=== PATIENT | female | born 1970 | race Caucasian/White ===

== ENCOUNTER 2019-11-07 14:08 | Emergency (ER) | payer BC, SELFPAY ==
[2019-11-07 14:12] VITALS: BP 137/89; PULSE 72; RESP 16; TEMP 37.1; O2SAT 95; BMI 36.2
--- NOTE | 2019-11-07 14:33 | CT_ITS ---
STUDY: CT ABDOMEN AND PELVIS WITHOUT CONTRAST REASON FOR EXAM: Female, 49 years old. LEFT FLANK PAIN FOLLOWING STENT PLACEMENT 4 DAYS AGO FOR KIDNEY STONE. PRIOR TOTAL HYSTERECTOMY AND CHOLECYSTECTOMY RADIATION DOSAGE (If Supplied By Facility): CTDIvol = ( 13.16 ) mGy, DLP = ( 699.41 ) mGycm TECHNIQUE: Transaxial images were obtained from the dome of the diaphragm to the symphysis pubis without oral contrast, and without intravenous contrast. Sagittal and coronal images were reconstructed. Individualized dose optimization techniques were used for this CT. COMPARISON: None. FINDINGS: Lung bases are clear. Heart size is normal. The liver is unremarkable. The gallbladder is nonvisualized. The spleen and pancreas are unremarkable. The adrenal glands are normal. Right renal low-attenuation lesion measures 1.8 cm, not characterized without contrast. Left ureteral stent extends from the left renal pelvis to the bladder. The kidneys are otherwise unremarkable. No stones or hydronephrosis. The aorta is normal in caliber. There is no free fluid, free air, or organized collection. No bowel obstruction or inflammatory change. Diverticulosis. Normal appendix. Urinary bladder is unremarkable. Small, fat-containing umbilical hernia. Normal osseous structures. CT/Abdomen/Pelvis without Cont IMPRESSION: 1. No acute findings. 2. Small, fat-containing umbilical hernia. 3. Left ureteral stent in situ. No obstructive uropathy. 4. Chronic findings are noted above. Electronically Signed: Catherine Chapa MD at 15:53 EDT Tel , Service support ,
--- NOTE | 2019-11-07 14:35 | ED.VISSUMM ---
- ER Visit Summary Date of Service: 11/07/19 Chief Complaint: [Abdominal pain] History of Present Illness: The patient is a 49 F [presents to the emergency department complaint of abdominal/pelvic pressure that started 2 days ago. Patient states that she is from [place] and 4 days ago had lithotripsy for kidney stone in her left ureter and had a stent placed. Patient felt pretty well for the approximately 2 days afterwards. She is currently on Cipro. She had been on Levaquin prior to that. She denies any fevers. She has been having worsening pain for the last 2 days and frequency of urination as well as dysuria. Patient has history of hypertension. She has had prior cholecystectomy, and hysterectomy.] Took Toradol for pain today and she does not get much pain relief. She rates her pain currently an 8 out of 10. Physical Examination: [HEENT-PERRLA, EOMI. Cranial nerves II through XII grossly intact. TMs clear. Mucous membranes moist. No adenopathy. Cardiovascular-regular rate and rhythm without murmur or ectopy Lungs-clear to auscultation, chest wall stable without crepitus or subcu emphysema Abdomen-normoactive bowel sounds, soft. Patient has tenderness over the suprapubic region. No rebound, rigidity, or cranial signs. No CVA tenderness on exam. Extremities-intact ?4, normal range of motion, normal pulses, atraumatic Test Results: [CBC with it was normal. Chemistries unremarkable B. BUN was 27 and creatinine 1.08. Urinalysis showed positive nitrites but no leukocyte Estrace. Patient had greater than 100 RBCs and no white cells noted. Patient had +[address] flank obtained showed left ureteral stent otherwise nothing acute.] Emergency Department Course and Treatment: [Patient was medicated with morphine and Zofran IV. She had good pain relief with that. Patient was discussed with urology on-call who recommended adding Flomax to her regimen. It was believed that her pain likely due to pain from the stent. Patient will be given a prescription for [place] and Flomax. She is advised to follow-up with her urologist and her plan is to go home tomorrow to [place] and call in 2 days to follow-up with her urologist.] Treatment Plan: [Low up with urology in 2 days. Patient given a prescription for Flomax and Percocet.] Disposition: [Discharged home in stable condition] Impression: [Abdominal pain] This note was generated with [employer] dictation software. It may contain incorrect words, spelling, and punctuation that were not noted in review of the chart prior to signing ED Disposition - Plan for ED Patient: Referrals: NOT,DEFINED [NON-STAFF] -
[2019-11-07 14:59] LABS: Mucous, Urine 0 SEEN /hpf (<or=2+); Squamous Epithelial Cells - UA 0 SEEN /hpf (5-10); White Blood Cells 0 SEEN /hpf (0-5)
[2019-11-07 15:00] LABS: Color, Urine Brown (Yellow); Glucose, Dipstick Normal (Normal); Ketone-Dipstick 5 mg/dl (Negative); Leukocyte Esterase-Dipstick Negative /ul (Negative); Nitrite-Dipstick Positive (Negative); Occult Blood-Urine 250 /ul (Negative); Protein-Dipstick 500 mg/dl (Negative); Specific Gravity, Urine 1.025 (1.002-1.030); Urine Clarity Turbid (Clear); Urine Urobilinogen 8 mg/dl (Normal); Urine pH 6.5 (5.0 - 8.0)
[2019-11-07] MEDS: Ondansetron 4 MG/2 ML Vial IV (15:01)
[2019-11-07 15:02] LABS: Urine Bilirubin Dipstick 6 mg/dL (Negative)
[2019-11-07] MEDS: Morphine 4 MG/ML Syringe IV (15:02)
[2019-11-07 15:03] LABS: Absolute Lymphocyte Count 2.67 X10^3/uL (0.83-4.51); Absolute Neutrophil Count 3.8 X10^3/uL (2.0-7.7); Basophil# 0.03 X10^3/uL; Basophil% 0.4 % (0-1); Eosinophil# 0.23 X10^3/uL; Eosinophils% 3.2 % (0-5); Hematocrit 40.2 % (37-47); Lymphocyte # 2.67 X10^3/ul (4.0); Lymphocyte % 36.7 % (19-41); Mean Corp Hgb Conc 32.3 g/dL (32-36); Mean Corpuscular Hgb 27.4 pg (27.0-32.0); Mean Corpuscular Volume 84.8 fL (81-99); Mean Platelet Vol. 10.1 fl (6.2-12.0); Monocyte# 0.49 X10^3/uL; Monocyte% 6.7 % (0-10); NRBC Flagged by Analyzer 0 % (0-5); Neutrophil # 3.84 X10^3/uL (2.7-7.7); Neutrophil % 52.7 % (47-70); Platelet Count 231 K/mm3 (150-450); RBC Distribution Width CV 13.2 % (11.6-14.6); RBC Distribution Width SD 40.5 fl (35.1-43.9); Red Blood Count 4.74 M/mm3 (4.2-5.4); White Blood Count 7.3 K/mm3 (4.4-11.0)
[2019-11-07] MEDS: 0.9% Normal Saline 1,000 ML 125 ML IV (15:03)
[2019-11-07 15:07] LABS: Red Blood Cells-Urine > 100 SEEN /hpf (0-5)
[2019-11-07 15:08] LABS: Bacteria 1+ /hpf (None Seen)
[2019-11-07 15:26] LABS: Anion Gap 9 (5-15); BUN 27 mg/dL (7-18); Calcium,Total 8.6 mg/dL (8.5-10.1); Chloride 110 mmol/L (98-107); Creatinine, Serum 1.08 mg/dL (0.55-1.02); EST Glomerular Filtration Rate 57 mL/min (>60); Est Glom Filt Rate - Afr Amer 69 mL/min (>60); Estimated Creatinine Clearance 53.81 ml/min; Glucose 110 mg/dL (74-106); Potassium 3.7 mmol/L (3.5-5.1); Sodium Level 145 mmol/L (136-145)
--- NOTE | 2019-11-07 16:11 | ED.DEP ---
ED Disposition - Plan for ED Patient: Instructions: ED Abdominal Pain Unkn Cause Fem Prescriptions: Tamsulosin HCl [Flomax] 0.4 mg PO DAILY #7 cap Prescription Printed Oxycodone HCl/Acetaminophen [Percocet 5/325] 1 tab PO Q6H PRN PRN 3 Days #12 tab PRN Reason: Pain Prescription Printed Ketorolac [Toradol] 10 mg PO Q6H PRN #10 tab PRN Reason: Pain Score 4-10/10 Prescription Printed Referrals: NOT,DEFINED [NON-STAFF] - Additional Instructions: see your urologist
[2019-11-07 16:24] VITALS: BP 109/65; PULSE 69; RESP 16; O2SAT 98
== END 2019-11-07 16:26 | disposition home or self-care (01) ==
LOC: ED 15:28
PROVIDERS: Emergency Provider Emergency Medicine
DX: R10.9 Unspecified abdominal pain (principal); I10 Essential (primary) hypertension; Z87.442 Personal history of urinary calculi; Z90.49 Acquired absence of other specified parts of digestive tract
CPT/HCPCS: 74176; 80048; 81001; 85025; 87086; 96361; 96374; 96375; 99283; J7030; A4216; J2405